=== PATIENT | male | born 1965 | race Caucasian/White ===

== ENCOUNTER 2016-09-12 06:06 | Day surgery (SDC) | payer BC ==
[~2016-09-12] VITALS: Ht 190.5 cm; Wt 109.5 kg
--- NOTE | ~2016-09-12 | HP ---
PATIENT'S NAME[facility] AGE: 51 Y [address] ROOM: [place] [id number] LOCATION: [facility] ADMIT DATE: 09/12/2016 History & Physical DISCHARGE DATE: FAMILY PHYSICIAN: Angel Palomares MD ATTENDING PHYSICIAN: Raffaele Reed DATE OF SERVICE: CHIEF COMPLAINT: Low back pain. HISTORY OF PRESENT ILLNESS: The patient is a 51-year-old male who was admitted to the care of Dr. Raffaele Reed, spine surgeon, today for right L4-5 hemilaminectomy, done today, 09/12/2016. When I see the patient postop, he just had a bout of emesis, but now feels better. He does not complain of any pain at this time. The visit is done with his and daughter who present for the exam. I will follow him medically for pain management and general care at the request of Dr. Reed. CURRENT MEDICATIONS: 1. Zantac. 2. Tylenol. ALLERGIES TO MEDICATION: No known drug allergies. PREVIOUS OPERATIONS: Previous deviated septum repair 2008 and tonsillectomy. SOCIAL HISTORY: He drinks alcohol occasionally. Does chew tobacco, one can per week. FAMILY HISTORY: Negative for problem with general anesthesia or bleeding disorder. REVIEW OF SYSTEMS: HEENT: Negative. ENDOCRINE: He is not diabetic nor does he have thyroid disease. LUNGS: No history of asthma. HEART: No history of chest pain or palpitations, hypertension, or previous NM. GI: No recent problems with bowels. No dysphagia. No blood in the stool. No weight loss. : No dysuria or frequency. PATIENT'S NAME: [facility] AGE: 51 Y [address] ROOM: [address] [address] LOCATION: [facility] ADMIT DATE: 09/12/2016 History & Physical DISCHARGE DATE: FAMILY PHYSICIAN: Angel Palomares MD ATTENDING PHYSICIAN: Raffaele Reed EXTREMITIES AND SPINE: As mentioned per Dr. Reed's note. MENTAL STATUS: No recent history of depression or anxiety. SKIN: No recent rashes. PHYSICAL EXAMINATION: GENERAL: Alert, red haired male, with a large montero. He is oriented to person, place, and time. HEENT: Shows he wears glasses. Pupils reactive to light. TMs not visualized. Posterior pharynx clear. He has O2 per nasal cannula. NECK: Unremarkable. LUNGS: Clear. HEART: Shows no murmur, gallop, or rub. ABDOMEN: Benign. EXTREMITIES: Unremarkable. SPINE: I did not check his incision. NEUROLOGIC: Grossly intact. No lateralizing signs. Cranial nerves intact. ASSESSMENT: 1. Low back pain. 2. Status post right L4-L5 hemilaminectomy. 3. History of gastritis. 4. Status post deviated septum repair in 2008. 5. Status post tonsillectomy. PLAN: Pain management and treatment for nausea and vomiting, see daily. MD HOPE CHURCH/eva /[id number] D: 627 T: 725 HISTORY & PHYSICAL
--- NOTE | ~2016-09-12 | OR ---
PATIENT'S NAME: [facility] AGE: 51 Y [address] ROOM: [place] [address] LOCATION: [facility] ADMIT DATE: 09/12/2016 OR/Procedure Report DISCHARGE DATE: FAMILY PHYSICIAN: Angel Palomares MD ATTENDING PHYSICIAN: Raffaele Reed SURGEON: Raffaele Reed MD TRIAGE LICENSED PRACTICAL NURSE: DATE OF PROCEDURE: 09/12/2016 PREOPERATIVE DIAGNOSES: 1. Lumbar degenerative disk disease. 2. Lumbar spondylosis. 3. Lumbar spinal stenosis. 4. Lumbar radiculopathy. 5. Low back pain. POSTOPERATIVE DIAGNOSES: 1. Lumbar degenerative disk disease. 2. Lumbar spondylosis. 3. Lumbar spinal stenosis. 4. Lumbar radiculopathy. 5. Low back pain. PROCEDURES PERFORMED: 1. Lumbar laminectomy L4 with decompression of the L4-5 interspace including extensive facet resection and foraminal decompression. 2. Lumbar fusion, combined technique, including transforaminal lumbar interbody fusion plus posterolateral fusion, L4-5. 3. Application of spinal prosthetic cage, L4-5 interspace. 4. Application of pedicle screw instrumentation, 2 segments, single sergo, bilateral, nonsegmental, L4-5. 5. [place] of bone marrow aspirate, transpedicular technique, L4 vertebral body. 6. [place] of local bone graft, same incision. DIRECTOR OF FINANCIAL PLANNING: DONELL Camarillo ANESTHESIA: General. ESTIMATED BLOOD LOSS: 400 mL. COMPLICATIONS: None. SPECIMENS: None. PATIENT'S NAME: [facility] AGE: 51 Y [address] ROOM: [place] [address] LOCATION: [facility] ADMIT DATE: 09/12/2016 OR/Procedure Report DISCHARGE DATE: FAMILY PHYSICIAN: Angel Palomares MD ATTENDING PHYSICIAN: Raffaele Reed FINDINGS: Severe foraminal stenosis, L4-5. OPERATIVE INDICATIONS: The patient is a 51-year-old male who has symptomatic lumbar spondylosis and severe foraminal stenosis with radiculopathy. He had failed conservative treatment. He was offered surgery in the form of lumbar decompressive operation. Extensive discussions were had preoperatively including the options of hemilaminotomy and foraminotomy versus fusion. We had initially planned for a decompressive operation, but the patient understood that if decompression could not be successfully performed without sacrificing a significant portion of his facet, rendering his spine unstable, that he would need a fusion at that time. He understood this, and all risks, benefits, and options were explained. OPERATIVE NARRATIVE: After the patient was correctly identified and operative site initialed, he was taken back to the operating room and placed in a supine position. After general anesthesia was induced, he was placed in the prone position on the Venkata table with all bony prominences well padded and protected. He received IV antibiotics prior to surgery. A time-out was taken to verify the patient and the procedure. 10 mL of 0.25% Marcaine with epinephrine was injected in line with the incision. A 10-blade was used to make a midline incision over the operative levels. Dissection was taken down through the subcutaneous tissue with electrocautery. The fascia was opened in the midline, and subperiosteal dissection was performed to expose the L4-5 segment. Kerrison was placed on the right side of the lamina at L4-5 and verified on lateral fluoroscopy at L4-5. Next, a hemilaminotomy was performed on the right side by using Kerrison and the bur. The recess and foraminal stenosis was severe. Extensive facet resection was required in order to adequately decompress the nerve root. At the point where adequate decompression was completed, a total facetectomy had been performed. Because of this reason, it was necessary to move forward with fusion for re- stabilization of the iatrogenic instability. The contralateral side was decompressed as well. Local bone was saved for fusion. Gentle medial retraction on the dura allowed identification of the disk space. It was incised and then debrided using pituitaries, curettes, and disk space nathen. The cage was selected, and bone graft and BMP were packed into the disk space. Similar material packed into the cage. The cage was impacted into the disk space, recessed below the posterior vertebral margin, and expanded to its torque-limiting height. A reference frame clamp was attached to the spinous process of L4, and the arm was brought in for navigation scan. Under Stealth navigation, the pedicles were localized, and a 4 screw was placed on the right at L4. Bone marrow aspirate needle was introduced into the vertebral body, and 5 mL of bone marrow aspirate was obtained and mixed with bone graft stemmer machine. After all pedicle screws were placed and had good purchase, the arm was brought in for confirmation scan. Rods were reduced to the screws, set caps placed and tightened to the appropriate torque. A high-speed bur was PATIENT'S NAME: [facility]ILL[facility] AGE: 51 Y [address] ROOM: [place] [address] LOCATION: [facility] ADMIT DATE: 09/12/2016 OR/Procedure Report DISCHARGE DATE: FAMILY PHYSICIAN: Angel Palomares MD ATTENDING PHYSICIAN: Raffaele Reed used to decorticate the left-sided transverse processes of L4 and L5, and the locally harvested bone graft, bone marrow aspirate, and bone graft stemmer machine were packed in the lateral gutter for fusion. DuraSeal was injected over the disk space to isolate it from the spinal canal. The wound was irrigated and dried. 1 g of vancomycin powder was divided between the superficial and deep tissues. The incision was repaired in layers with #1 Vicryl on the fascia, 0 Vicryl on the subcutaneous tissue, and ernesto on the skin. A sterile dressing was applied, and the patient was awakened from anesthesia and taken to the recovery room in stable condition. A surgical rn was necessary during this procedure for evacuation of blood during decompression, assistance with placement of the TLIF cage, and pedicle screw fixation for fusion and stabilization. MD FRANCES LOUIS/jeanninel /[id number] d: 09/12/16 1428 t: 09/19/16 0953, OPERATIVE SUMMARY
[~2016-09-12 06:06] MED LIST: ZANTAC300 MG PO
[2016-09-12 06:45] LABS: PROTIME 10.6 SECONDS (9.6-11.1)
--- NOTE | 2016-09-12 17:22 | NUR ---
Significant Event: Pt returned from OR at 1205, VSS, last hourly at 1800, N/V checks are WNL, except R) toes numb-this was prior to OR. 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
--- NOTE | 2016-09-13 04:45 | NUR ---
Patient alert and oriented x3, very pleasant and cooperative, dressing to back has been reinforced due to drainage out of the bottom of dressing, pain has been well controled with [employer], ambulated well in the hallway, does have some numbness and tingling to toes that was present prior to surgery, ready to go home
[2016-09-13] MEDS ORDERED: ROXICODONE 5MG (5 MG PO (07:38)
[2016-09-13] MEDS ORDERED: SOMA350 MG PO (07:38)
[2016-09-13 08:08] LABS: BASOPHIL % 0.2 %; EOSINOPHIL % 0.2 %; HEMATOCRIT 39.2 % (37.0-53.0); HEMOGLOBIN 12.8 g/dL (12.0-17.0); IMMATURE GRANULOCYTE # 0.1 K/uL (0.0-0.3); IMMATURE GRANULOCYTE % 0.4 %; LYMPHOCYTE # 2.5 K/uL (0.8-4.0); LYMPHOCYTE % 20.2 %; MCH 28.4 pg (27.0-34.0); MCHC 32.7 gm/dL (32.0-36.5); MCV 87.1 fl (83.0-98.0); MONOCYTE # 1.5 K/uL (0.0-1.0); MONOCYTE % 12.1 %; MPV 9.4 fl (9.4-12.4); NEUTROPHIL # (ANC) 8.3 K/uL (1.4-9.0); NEUTROPHIL % 66.9 %; NRBC % 0 /100WBC (0-0.00); PLATELET COUNT 241 K/uL (150-450); RDW-CV 12.8 % (11.9-14.6); WBC 12.4 K/uL (4.0-11.0)
[2016-09-13] MEDS ORDERED: PERCOCET 10-321 EACH PO (08:46)
== END 2016-09-13 10:38 | disposition disaster alternative care site (69) ==
LOC: G3N 06:06 → GSDC 06:06 → G3N 12:00 → GSDC 09-13 10:38
PROVIDERS: Orthopaedic Surgery Orthopaedic Surgery of the Spine; Physician Assistant Surgical
PROC: 0SG00AJ Fusion of Lumbar Vertebral Joint with Interbody Fusion Device, Posterior Approach, Anterior Column, Open Approach (ICD-10-PCS; principal; 2016-09-12)
PROC: 0QH004Z Insertion of Internal Fixation Device into Lumbar Vertebra, Open Approach (ICD-10-PCS; 2016-09-12)
DX: M51.16 Intervertebral disc disorders with radiculopathy, lumbar region (principal); M48.06 Spinal stenosis, lumbar region; M47.26 Other spondylosis with radiculopathy, lumbar region; F17.220 Nicotine dependence, chewing tobacco, uncomplicated; Z98.890 Other specified postprocedural states
CPT/HCPCS: C1713; C1776; J0131; J0690; J1040; J1100; J1885; J2001; J2270; J2405; J3370; J3480; J7120